=== PATIENT | male | born 1985 | race Caucasian/White ===

== ENCOUNTER 2024-02-27 06:12 | Emergency (ER) | payer OTHER ==
[~2024-02-27] VITALS: Ht 172.7 cm; Wt 117.9 kg
[2024-02-27] MEDS ORDERED: AMOX-CLAV 875-1 EACH PO (06:30)
== END 2024-02-27 06:37 | disposition home or self-care (01) ==
LOC: ED 06:12
DX: B96.89 Other specified bacterial agents as the cause of diseases classified elsewhere (principal); J02.8 Acute pharyngitis due to other specified organisms